=== PATIENT | female | born 1985 | race Caucasian/White ===

== ENCOUNTER 2017-10-06 05:13 | Inpatient (IN) | payer OTHER, SELFPAY ==
[2017-10-06] VITALS (13 sets, daily range): BP systolic 92–119; BP diastolic 44–69; PULSE 70–106; RESP 14–20; TEMP 36.6–37.2; O2SAT 99–100; BMI 24.3
[2017-10-06 05:12] LABS: ROM Internal Control Test YES-OK TO RESULT pt. (Internal QC); ROM Patient Test POSITIVE (Negative)
[2017-10-06] MEDS: Lactated Ringers 1,000 ML 50 ML IV (05:40)
[2017-10-06 06:04] LABS: Hematocrit 37.7 % (37-47); Hemoglobin 13.1 g/dl (12.0-15.0); Mean Corp Hgb Conc 34.7 g/gl (32-36); Mean Corpuscular Hgb 29.1 pg (27.0-32.0); Mean Corpuscular Volume 83.8 fL (81-99); Mean Platelet Vol. 10.5 fl (6.2-12.0); Platelet Count 227 K/mm3 (150-450); RBC Distribution Width CV 13.6 % (11.6-14.6); RBC Distribution Width SD 40.6 fl (35.1-43.9); White Blood Count 9.4 K/mm3 (4.4-11.0)
[2017-10-06 06:08] LABS: Scan Indicated on CBC? Y/N NO
[2017-10-06 07:31] LABS: Group B Strep DNA By PCR Negative (Negative); Internal Control PASS; Probe Check PASS; Specimen Processing Control PASS
--- NOTE | 2017-10-06 09:04 | PCM.HP.OB ---
History Date of Admission: 10/06/17 Final SHARATH: 10/27/17 Gestational age: 37 Weeks and 0 Days History of this : This is a 32 year-old, G [], P [], at 37 weeks gestational age. Allergies No Known Allergies Allergy (Verified 11/12/15 12:11) Home Medications: Home Medications Calcium 11/12/15 Cetirizine HCl [Zyrtec] 1 cap PO DAILY 11/12/15 Vits [Prenatabs FA ] 1 tab PO DAILY 11/12/15 busPIRone [Buspar] 15 mg PO BID 11/12/15 Smoking Status: Never smoker Alcohol: None Number of Fetus(es): 1 Heart Tracin with mod variability, accels TOCO Analysis: occ History Past Pregnancies: Past Pregnancies Delivery Date Name GA/Weeks Outcome Route Weight Gender Labor Length Anesthesia Delivery Location Provider FOB Expected Delivery Method: Physical Exam General: Alert, Oriented x3 Abdomen: Soft, Non Tender, Non-Distended, Gravid Presentation: Cephalic Cervix Dilation (cm): 2 Station: -2 Effacement (%): 50 Assessment/Plan 32yo female at 37 weeks for TOLAC Patient has been counseled throughout the on R/B/A of MOD. She wishes to proceed with TOLAC. Labor augmentation - discussed R/B/A of pitocin as patient ruptured for 7 hours & not having regular ctxs. She is aware of the increased risk of uterine rupture & agrees to proceed. Pain - she declines an epidural at this time. Patient is aware that we recommend epidural placement as it would expedite a section if needed emergently. Rapid GBS negative. EFW less than 4500g and patient with adequate pelvis.
[2017-10-06] MEDS: Oxytocin 30 units/NS 500 ml 30 UNITS/500 ML IV.SOLN IV (09:06)
[2017-10-06] MEDS: fentaNYL-bupivacaine (epidural) 100 ML BAG EPIDURAL (17:20)
[2017-10-06] MEDS: Sodium Citrate/Citric Acid 30 ML UDC PO (17:45)
[2017-10-06] MEDS: Oxytocin 30 units/NS 500 ml 30 UNITS/500 ML IV.SOLN 167 UNITS IV (18:12)
--- NOTE | 2017-10-06 19:13 | PCM.OB.CSR ---
Delivery Final SHARATH: 10/27/17 Gestational age: 37 Weeks and 0 Days Indications: Patient presented with LOF and was 2cm dilated. She was started on pitocin after no cervical change. The pitocin was stopped for NRFHT. Patient progressed to 4cm off pitocin. She was having worsening variable decelerations. Decision made to proceed with repeat . Indications for : Nonreassuring Status - Failed TOLAC Description of Procedure: Patient taken to OR where epidural anesthesia was dosed. She was prepped and draped in normal sterile fashion in a dorsal lithotomy position with a leftward tilt. After ensuring adequacy of anesthesia the Pfannensteil skin incision was made and carried through to the underlying fascia w/ a bovie. The fascia was incised in the midline and carried laterally with the Arguello scissors. The rectus muscles were in the midline and the peritoneum was entered bluntly. The bladder flap was dissected down with the Metzenbaum scissors and careful blunt dissection. The uterine incision was made with the scalpel and extended laterally w/ blunt dissection. The fetus was vertex and the head was brought to the incision in the flexed position. With good fundal pressure the head delivered. Gentle traction placed on head to allow delivery of anterior & posterior shoulders. No excess traction placed on head. Body delivered easily. The cord was clamped and cut after 1 minute delay and the handed off to waiting RN. The placenta was delivered w/ gentle traction and fundal massage and the uterus was exteriorized and cleared of all clots and debris. The uterine incision was closed with 1 vicryl suture in a running locked fashion. A second layer of monocryl was used as an imbricating layer. 3 figure of 8 sutures were placed to further obtain hemostasis of the uterine incision and bladder flap peritoneum. The uterus was returned to the peritoneal cavity which was cleared of all clots and debris. The uterine incision was reexamined and found to be hemostatic. Ramya was placed over the bladder flap and uterine incision d/t the denuded areas. The peritoneum was closed with 3-0 vicryl. The fascia was closed with looped PDS suture in a running standard fashion. The subcutaneous tissue was examined, any bleeding bovie cauterized. The subcutaneous tissue was reapproximated with plain gut suture. The skin was closed in a subcuticular fashion by the ELECTROSLAG WELDING MACHINE OPERATOR with me present in the labor and delivery suite. I performed the remainder of the procedure w/ assistance. Amniotic Membrane Rupture Type: Spontaneous Amniotic Fluid Description: Clear Placenta Disposition: [facility] Drain: Lehman to straight drain Fluids Replaced: 1100ml Cord Entanglement: None Cord Vessel Description: 3 Vessels Esitmated Blood Loss (ml): 800ml Gender: Female (1 minute): 8 (5 minute): 9 Delayed cord clamping: Yes Pre-op Antibiotic Given: Ancef 2 grams IV x1
--- NOTE | 2017-10-06 19:18 | OP.PCM_ITS ---
Delivery Final SHARATH: 10/27/17 Gestational age: 37 Weeks and 0 Days Indications: Patient presented with LOF and was 2cm dilated. She was started on pitocin after no cervical change. The pitocin was stopped for NRFHT. Patient progressed to 4cm off pitocin. She was having worsening variable decelerations. Decision made to proceed with repeat . Indications for : Nonreassuring Status - Failed TOLAC Description of Procedure: Patient taken to OR where epidural anesthesia was dosed. She was prepped and draped in normal sterile fashion in a dorsal lithotomy position with a leftward tilt. After ensuring adequacy of anesthesia the Pfannensteil skin incision was made and carried through to the underlying fascia w/ a bovie. The fascia was incised in the midline and carried laterally with the Arguello scissors. The rectus muscles were in the midline and the peritoneum was entered bluntly. The bladder flap was dissected down with the Metzenbaum scissors and careful blunt dissection. The uterine incision was made with the scalpel and extended laterally w/ blunt dissection. The fetus was vertex and the head was brought to the incision in the flexed position. With good fundal pressure the head delivered. Gentle traction placed on head to allow delivery of anterior & posterior shoulders. No excess traction placed on head. Body delivered easily. The cord was clamped and cut after 1 minute delay and the handed off to waiting RN. The placenta was delivered w/ gentle traction and fundal massage and the uterus was exteriorized and cleared of all clots and debris. The uterine incision was closed with 1 vicryl suture in a running locked fashion. A second layer of monocryl was used as an imbricating layer. 3 figure of 8 sutures were placed to further obtain hemostasis of the uterine incision and bladder flap peritoneum. The uterus was returned to the peritoneal cavity which was cleared of all clots and debris. The uterine incision was reexamined and found to be hemostatic. Ramya was placed over the bladder flap and uterine incision d/t the denuded areas. The peritoneum was closed with 3-0 vicryl. The fascia was closed with looped PDS suture in a running standard fashion. The subcutaneous tissue was examined , any bleeding bovie cauterized. The subcutaneous tissue was reapproximated with plain gut suture. The skin was closed in a subcuticular fashion by the DE ICER with me present in the labor and delivery suite. I performed the remainder of the procedure w/ assistance. Amniotic Membrane Rupture Type: Spontaneous Amniotic Fluid Description: Clear Placenta Disposition: [facility] Drain: Lehman to straight drain Fluids Replaced: 1100ml Cord Entanglement: None Cord Vessel Description: 3 Vessels Esitmated Blood Loss (ml): 800ml Infant Gender: Female (1 minute): 8 (5 minute): 9 Delayed cord clamping: Yes Pre-op Antibiotic Given: Ancef 2 grams IV x1
[2017-10-06] MEDS: Lactated Ringers 1,000 ML 100 ML IV (20:47)
[2017-10-06] MEDS: Nalbuphine 10 MG/ML Ampul 5 MG IV (22:41)
[2017-10-07] VITALS (14 sets, daily range): BP systolic 94–109; BP diastolic 53–72; PULSE 80–109; RESP 16–20; TEMP 36.6–37.6; O2SAT 98–100
[2017-10-07] MEDS: Ketorolac 30 MG/ML Syringe IV ×4 (00:45→18:32)
[2017-10-07 06:35] LABS: Hematocrit 33.5 % (37-47); Hemoglobin 11.1 g/dl (12.0-15.0); Mean Corp Hgb Conc 33.1 g/gl (32-36); Mean Corpuscular Hgb 28.2 pg (27.0-32.0); Mean Platelet Vol. 10.2 fl (6.2-12.0); Platelet Count 185 K/mm3 (150-450); RBC Distribution Width CV 13.8 % (11.6-14.6); Red Blood Count 3.94 M/mm3 (4.2-5.4); White Blood Count 9.3 K/mm3 (4.4-11.0)
[2017-10-07 06:36] LABS: Scan Indicated on CBC? Y/N NO
--- NOTE | 2017-10-07 08:34 | PCM.PN.OB ---
Subjective: pt seen at bedside, doing well. pt reports good pain control. lochia mild. caldwell in place. passing flatus. - Physical Exam General: Alert, Oriented x3 Abdomen: Soft, Non-Distended, - - fundus firm, dressing dry and intact Extremities: No Calf Tenderness Vital Signs Temp Pulse Resp BP Pulse Ox 98 F 98 16 94/53 L 100 10/07/17 03:58 10/07/17 07:24 10/07/17 07:24 10/07/17 03:58 10/07/17 07:24 Oxygen Delivery Method Room Air Weight: 66.4 kg Body Mass Index (BMI) 24.3 Intake and Output for Last 24 Hours 10/05/17 10/06/17 10/07/17 23:59 23:59 23:59 Intake Total 600 / 600 1850 / 1850 Output Total 2600 / 2600 2600 / 2600 Balance -2000 / -2000 -750 / -750 Laboratory Tests Past 24 Hrs 10/07/17 05:45 WBC 9.3 RBC 3.94 L Hgb 11.1 L Hct 33.5 L MCV 85.0 MCH 28.2 MCHC 33.1 RDW 13.8 RDW Differential 43.0 Plt Count 185 MPV 10.2 Medical Necessity - Tobacco Use Smoking Status: Never smoker Assessment/Plan POD#1, doing well routine care pain mgmt dc foleyl ambulation
--- NOTE | 2017-10-07 08:40 | DCINST_ITS ---
Discharge Diet: No Restrictions Discharge Activity: Return to Normal Activity, May Not Drive - for 2 weeks, May not drive while taking narcotic pain medications., May Shower, May Take a Tub Bath - in 7 days. May resume sexual activity in: 4-6 weeks Lifting Restrictions: 20 pounds Additional Activity Instructions:: Nothing in the vagina for 4-6 weeks. You may return to work/school in 6 weeks. Call your doctor if your incision/area has: Continuous Slow Oozing, Sudden Increased Bleeding, Increased Pain/ Swelling, Increased Redness, Foul Smelling Discharge Call your doctor if you observe: Fever of 101 or Higher, Using more than one pad per hour - for 2 hours Suture Line Care: Avoid Pulling/Pushing, Avoid Pinching/Bending Cleanse incision/area with: Keep Dressing Clean & Dry Additional Instructions: If you experience any of the following, contact your healthcare provider. * Bleeding that soaks a pad every hour for 2 hours * Fever 100.4 or higher * Unrelieved incision or abdominal pain * Swelling, redness, discharge or bleeding from your incision or episiotomy site * Your incision begins to separate * Problems urinating (including inability to urinate or burning while urinating) . * Visual changes * Severe headache * Flu-like symptoms * Pain or redness in one of both of your breasts * Pain, warmth, tenderness or swelling in your legs, especially the calf area * Frequent nausea and vomiting * Symptoms of depression or anxiety If you experience any of the following, call 911 or go to the nearest Emergency Room. * Chest pain * Problems breathing * Seizure activity * Partial or complete paralysis of a body part, slurred speech, weakness or drooping of the face, or a sudden inability to walk or hold your balance Allergies/Adverse Reactions: Allergies No Known Allergies Allergy (Verified 11/12/15 12:11) Medications to take at Discharge Calcium 11/12/15 Cetirizine HCl [Zyrtec] 1 cap PO DAILY 11/12/15 Vits [Prenatabs FA ] 1 tab PO DAILY 11/12/15 busPIRone [Buspar] 15 mg PO BID 11/12/15 Ibuprofen [Motrin] 800 mg PO Q8H PRN PRN #30 tab 10/07/17 Oxycodone HCl/Acetaminophen [Percocet 5/325] 1 tablet PO Q6H PRN PRN 7 Days #28 tablet 10/07/17 Senna/Docusate Sodium [Senokot-S] 1 tab PO DAILY PRN #30 tab 10/07/17 SimETHICONE [Mylicon] 80 mg PO PCHS PRN #30 tab 10/07/17 The following prescriptions were given: Oxycodone HCl/Acetaminophen [Percocet 5/325] 1 tablet PO Q6H PRN PRN 7 Days #28 tablet PRN Reason: Pain Ibuprofen [Motrin] 800 mg PO Q8H PRN PRN #30 tab PRN Reason: Pain Senna/Docusate Sodium [Senokot-S] 1 tab PO DAILY PRN #30 tab PRN Reason: Constipation SimETHICONE [Mylicon] 80 mg PO PCHS PRN #30 tab PRN Reason: Indigestion/stomach pain Follow-Up: Call to make an appointment with your doctor for an incision check in 1-2 weeks. You will also need a 6 week post- follow up appointment. Please Follow Up With: Anaid Morin MD - Call to make an appointment for an incision check in 1-2 [phone] When: You will need a post- check in 6 weeks. Primary Care Physician: Ashish Longo MD [Primary Care Provider] -
[2017-10-07] MEDS: Senna/Docusate Sodium 1 Tablet PO (09:36)
--- NOTE | 2017-10-07 15:28 | NURSING ---
1200 When baby sleepy and not feeding well I was able to help Mom with hand expressing and she did an awesome job. 10ml's was obtained and spoon fed to baby. Mom could have easily expressed more. Mom had a great supply with previous child too. Radha RN IBCLC
[2017-10-07] MEDS: Famotidine 20 MG Tablet PO (17:02)
[2017-10-07] MEDS: oxyCODONE 5 MG Tablet PO ×2 (17:02→21:42)
[2017-10-07] MEDS: 0.9% Saline Lock 10 ML Syringe IV (18:31)
--- NOTE | 2017-10-07 18:48 | NURSING ---
asked several time today if pt is dizzy, lightheaded, SOB, has a headache, denies all, just unable to breathe deep at this time. mom is up and moving in the mo.
[2017-10-07] MEDS: Psyllium 1 PACKET PO (19:59)
[2017-10-08] MEDS: Ketorolac 30 MG/ML Syringe IV ×3 (00:10→11:38)
[2017-10-08 01:30] VITALS: BP 96/53; PULSE 92; RESP 16; TEMP 36.9; O2SAT 97
--- NOTE | 2017-10-08 07:29 | PCM.PN.OB ---
Subjective: pt seen at bedside, doing well. pt reports good pain control. lochia mild. passing flatus. - Physical Exam General: Alert, Oriented x3 Abdomen: Soft, Non-Distended, - - fundus firm. dressing dry and intact Extremities: No Calf Tenderness Vital Signs Temp Pulse Resp BP Pulse Ox 98.4 F 92 16 96/53 L 97 10/08/17 01:30 10/08/17 01:30 10/08/17 01:30 10/08/17 01:30 10/08/17 01:30 Oxygen Delivery Method Room Air Weight: 66.4 kg Body Mass Index (BMI) 24.3 Intake and Output for Last 24 Hours 10/06/17 10/07/17 10/08/17 23:59 23:59 23:59 Intake Total 600 / 600 1850 / 1850 Output Total 2600 / 2600 6200 / 6200 Balance -1999 / -2000 -4350 / -4350 Medical Necessity - Tobacco Use Smoking Status: Never smoker Assessment/Plan POD#2, doing well routine care pain mgmt dc home
--- NOTE | 2017-10-08 07:33 | DS.PCM_ITS ---
Discharge Summary Date of Admission: 10/06/17 Date of Discharge: 10/08/17 Summary: This patient was admitted to [facility] on 10/06/2017 with leaking fluid found to be with ruptured membranes and was admitted for trial of labor after previous section. Patient was placed on Pitocin failed to dilate past 4 cm had a nonreassuring tracing. Patient underwent a repeat low-transverse section for failed TOLAC and nonreassuring status. Surgery was performed without difficulty by Dr. Samantha Tobias. Patient had an uneventful postoperative course. Patient was discharged home on postoperative day #2 on 10/08/2017 in stable condition.
[2017-10-08] MEDS: oxyCODONE 5 MG Tablet PO (07:58)
[2017-10-08 08:10] VITALS: BP 93/56; PULSE 94; RESP 18; TEMP 37
[2017-10-08] MEDS: Famotidine 20 MG Tablet PO (09:50)
[2017-10-08] MEDS: 0.9% Saline Lock 10 ML Syringe IV (11:39)
[2017-10-08 13:25] VITALS: BP 101/59; PULSE 96; RESP 18; TEMP 37.2
== END 2017-10-08 13:30 | disposition home or self-care (01) | DRG 766 ==
LOC: WPOUT 05:14
PROVIDERS: Admitting Provider Obstetrics & Gynecology; Family Provider Family Medicine; PCP Family Medicine; Visit Provider Obstetrics & Gynecology
DX: O76 Abnormality in fetal heart rate and rhythm complicating labor and delivery (principal); O65.5 Obstructed labor due to abnormality of maternal pelvic organs; O34.211 Maternal care for low transverse scar from previous cesarean delivery; Z37.0 Single live birth; Z3A.37 37 weeks gestation of pregnancy
CPT/HCPCS: 59025; 59050; 84112; 85027; 86850; 86900; 87081; 87653; 99218; J7120; A4216; G0378; J2405

== ENCOUNTER → 2018-08-04 09:36 | Outpatient (CLI) | payer OTHER, SELFPAY ==
--- NOTE | 2018-08-04 09:46 | MRI_ITS ---
STUDY: MRI BRAIN WITH AND WITHOUT CONTRAST REASON FOR EXAM: Female, 33 years old. Ataxia since 9 months ago TECHNIQUE: Standardized multiplanar fat and water weighted pulse sequences were obtained. 10 IV Dotarem was administered for the contrast portion of the examination. COMPARISON: None. FINDINGS: Normal size of the ventricles and extra-axial spaces for the patient's age. Normal white matter tracts of the supratentorial brain. Normal bilateral basal ganglia. Normal thalami. There is no extra-axial fluid accumulation. Normal flow voids within the major intracranial circulation suggesting patency by spin echo criteria. Normal venous enhancement. There is no enhancing intra-axial or extra-axial abnormality. Normal sella turcica, pituitary gland, infundibular stalk, optic chiasm and hypothalamus. Normal tectal plate and pineal gland. Normal midbrain, reba and medulla. Normal cerebellum. Normal basal cisterns. Normal bilateral temporal bones. Normal bilateral internal auditory canals. No demonstrated orbital abnormality, within the constraints of a routine brain study. Cyst in the left maxillary sinus. Normal calvarium and skull base. Normal visualized soft tissue structures. Normal visualized upper cervical spine. MRI/Brain W/WO Contrast IMPRESSION: Normal unenhanced and enhanced MRI of the brain. Electronically Signed: Ulysses Gomez MD at 14:00 EDT Tel , Service support ,
== END ==
PROVIDERS: Family Provider Family Medicine; PCP Family Medicine; Referring Provider Otolaryngology Otolaryngology/Facial Plastic Surgery; Visit Provider Otolaryngology Otolaryngology/Facial Plastic Surgery
DX: R27.0 Ataxia, unspecified (principal)
CPT/HCPCS: 70553; A9575